=== PATIENT | female | born 1970 ===

== ENCOUNTER 2020-06-24 11:50 | Emergency (ER) | payer OTHER ==
[~2020-06-24] VITALS: Ht 162.6 cm; Wt 108.9 kg
[2020-06-24] MEDS ORDERED: COZAAR50 MG (12:13)
[2020-06-24] MEDS ORDERED: SYNTHROID75 MCG (12:13)
[2020-06-24] MEDS ORDERED: GLUMETZA500 MG (12:14)
[2020-06-24] MEDS ORDERED: GLIMEPIRIDE1 M1 (12:14)
== END 2020-06-24 16:05 | disposition home or self-care (01) ==
LOC: ER 11:50
DX: M54.5 Low back pain (principal); M62.830 Muscle spasm of back